=== PATIENT | female | born 1975 | race Caucasian/White ===

== ENCOUNTER 2017-03-28 17:36 | Emergency (ER) | payer OTHER ==
[~2017-03-28] VITALS: Ht 162.6 cm; Wt 157.3 kg
[2017-03-28 18:38] VITALS: BP 167/118; PULSE 92; RESP 12; O2SAT 99
--- NOTE | 2017-03-28 21:19 | ED.REPORT ---
HPI-Extremity Problem Lower Date of Service Mar 28, 2017 ED Provider: Deon Garcia MD The pt is a 41 y/o female presenting to the ED complaining of RLE pain. She was diagnosed w/ cellulitis on February 19 and began her 2nd round of antibiotics 8 days ago but she reports the pain staying the same and increasing over the last few days. She is coming into the ED for an ultrasound. The pt also reports having intermittent fevers which are normal for her and unrelated to the cellulitis. The pt also recently broke her L foot. Nursing Notes Stated Complaint: POSS DVT Chief Complaint: Extremity Trauma Nursing Notes Reviewed: Yes Allergies: Coded Allergies: Sulfa (Sulfonamide Antibiotics) (Verified Allergy, Intermediate, hives and a little breathing problem, 03/28/17) General Time Seen by MD: 21:19 Chief Complaint Other (RLE pain ) Hx Obtained From: Patient Arrived By: Walk-in Onset Occurred: 1 week ago Symptom Duration: Since onset Recent Healthcare: No recent hospitalization, Recent doctor visit Similar Sx Previous: No Past Medical History Past Medical History Broken L foot Type 2 diabetes Past Surgical History None reported Social History None reported Ambulatory Status Independent Review of Systems L foot broken Constitutional: Reports: Fever (Intermittent and normal for pt ) Musculoskeletal: Reports: Extremity pain (RLE ) Complete sys rev & neg: except as marked. Physical Exam Initial Vital Signs Vital Signs (First) Date Time Temp Pulse Resp B/P Pulse Ox O2 Delivery O2 Flow Rate FiO2 03/28/17 18:38 37.2 92 12 167/118 99 Room Air Initial VS: Reviewed General/Constitutional: Well-developed, Well-nourished Head / Eyes: Atraumatic, Normocephalic, PERRL ENT: Mucous membranes moist Neck: Supple, Non-tender, Full range of motion Respiratory: Breath sounds normal, Clear to auscultation, No respiratory distress Cardiovascular: Regular rate & rhythm, Heart sounds normal, Intact distal pulses Abdomen / GI: Soft, Non-tender Upper Extremities: Vascular intact, Neuro intact, No swelling, No tenderness Skin: Warm, Dry, No cyanosis Neurologic: Alert, Oriented, Nonfocal Psychiatric: Mood/affect normal, Behavior normal, Normal thought content Lower Extremity / Pelvis / MS: Full range of motion, No deformity Right Leg / Calf: Positive: Swelling present... (Moderate) Ankle / Foot: Neurologic intact, Vascular intact Left Foot: Positive: ROM reduced (Broken and in boot ) Interpretation & Diagnostics US Soft Tissue/Musculoskeletal R calf Exam Performed by: Allied health pract Interpretation: Cellulitis Re-Eval/Medical Decision Med Decision/Clinical Course 41-year-old with cellulitis and swelling in the leg referred from outside for ultrasound. Ultrasound is negative for clot. Home for continued therapy with Augmentin, elevation, warm soaks, and follow up with PCP. Re-Evaluation/Progress : Time of Eval: 21:30 Re-Evaluation/Progress Note: Pt rechecked. Informed pt of plan for treatment. Pt understands and agrees with plan for treatment. F/U instructions and RTER warnings given. All questions addressed. Counseled Regarding: Diagnosis, Lab results, Need for follow-up, When/why to return to ED Discharge & Departure Impression: Primary Impression: Cellulitis Site of cellulitis: extremity Site of cellulitis of extremity: lower extremity Laterality: right Qualified Code: L03.115 - Cellulitis of right lower limb Additional Impressions: Leg edema, right Diabetes type 2, controlled Diabetes mellitus complication status: without complication Diabetes mellitus care home insulin use: unspecified care home insulin use status Qualified Code: E11.9 - Type 2 diabetes mellitus without complications Disposition: Home Discharge Condition All VS Reviewed: Yes Condition: Stable Additional Instructions: Apply a heating pad or warm soaks three or four times daily. Elevate the leg whenever possible. Continue your antibiotics as directed. Follow-up with your doctor in the office. Return if you develop heavy shaking chills, or other new symptoms of concern. Referrals: Britton Brewer DO (PCP) Ele Attestation Portions of this note were transcribed by Saurav Geller. I, Dr. Garcia personally performed the history, physical exam and medical decision-making; I reviewed and confirmed the accuracy of the information in the transcribed note. Signed by : Ele Ray, 03/28/17 and 2225. copies to: Britton Brewer Christopher W MD Mar 28, 2017 21:19 Saurav Geller Mar 28, 2017 22:14
--- NOTE | 2017-03-29 21:04 | DRSVH ---
PROCEDURE: US VEINOUS LEG DUPLEX UNILATERAL, RIGHT INDICATIONS: ? dvt TECHNIQUE: Real-time imaging, as well as color and pulse Doppler interrogation, were performed of the lower extr emity deep veins from the inguinal ligament to the popliteal fossa. COMPARISON: None. FINDINGS: The deep veins are normally compressible, and free of intraluminal thrombus. Color and pu lse Doppler demonstrate normal phasic intraluminal flow. There is normal augmentation response to di stal compression maneuver. IMPRESSION: No evidence for deep venous thrombosis is found in the right lower extremity with this d uplex venous Doppler study. Dictated by: Izaiah Casiano M.D. on 03/29/2017 at 21:02 Approved by: Izaiah Casiano M.D. on 03/29/2017 at 21:02
== END 2017-03-28 21:34 | disposition home or self-care (01) ==
LOC: SED 17:36
DX: L03.115 Cellulitis of right lower limb (principal); R60.0 Localized edema; E11.9 Type 2 diabetes mellitus without complications; R50.9 Fever, unspecified; Z87.828 Personal history of other (healed) physical injury and trauma; Z88.2 Allergy status to sulfonamides